=== PATIENT | male | born 1995 | race Caucasian/White ===

== ENCOUNTER 2018-02-18 12:16 | Emergency (ER) | payer BC ==
[2018-02-18] MEDS ORDERED: LIDOCAINE 2%/EPI MPF (SDV) 20 ML VIAL INJ (12:38)
[2018-02-18] MEDS: LIDOCAINE 1% (MDV) 10 ML INJ INJ (12:50)
[2018-02-18] MEDS: LIDOCAINE 1% (MPF) 5 ML VIAL INJ (13:40)
== END 2018-02-18 13:40 | disposition home or self-care (01) ==
LOC: FTE 12:16
DX: L02.31 Cutaneous abscess of buttock (principal)
CPT/HCPCS: 10060; 99284-25

== ENCOUNTER 2018-02-20 10:48 | Emergency (ER) | payer BC | END 2018-02-20 12:36 | disposition home or self-care (01) | LOC: FTE 10:48 | DX: Z48.01 Encounter for change or removal of surgical wound dressing (principal) | CPT/HCPCS: 99282 ==

== ENCOUNTER 2018-03-24 20:36 | Emergency (ER) | payer BC ==
[2018-03-24] MEDS: ONDANSETRON (ODT) 4 MG TAB ODT (23:03)
[2018-03-24] MEDS: HYDROCODONE/APAP (5/325) TAB PO (23:03)
[2018-03-25] MEDS: HYDROCODONE/APAP (5/325) TAB PO (01:21)
== END 2018-03-25 06:11 | disposition home or self-care (01) ==
LOC: FTE 03-25 06:11
DX: S00.93XA Contusion of unspecified part of head, initial encounter (principal); R11.2 Nausea with vomiting, unspecified; Y04.0XXA Assault by unarmed brawl or fight, initial encounter
CPT/HCPCS: 99283